=== PATIENT | male | born 2000 ===

== ENCOUNTER 2022-08-03 07:07 | Day surgery (SDC) | payer OTHER ==
[2022-08-03] MEDS ORDERED: PERCOCET 5-3251 EACH PO (11:33)
[2022-08-03] MEDS ORDERED: NEURONTIN300 MG PO (11:34)
[2022-08-03] MEDS ORDERED: POLY119PG PO (11:34)
== END 2022-08-03 13:15 | disposition home or self-care (01) ==
LOC: CIR.AMB 07:07
PROVIDERS: ATTEND Surgery
DX: K40.90 Unilateral inguinal hernia, without obstruction or gangrene, not specified as recurrent (principal); Z20.822 Contact with and (suspected) exposure to COVID-19